=== PATIENT | male | born 1960 | race Two or more races ===

== ENCOUNTER 2020-10-06 08:42 | Outpatient (CLI) | payer OTHER | END 2020-10-06 08:50 | disposition home or self-care (01) | LOC: RX STUDY 08:42 | PROVIDERS: ATTEND Thoracic Surgery (Cardiothoracic Vascular Surgery) | DX: K44.9 Diaphragmatic hernia without obstruction or gangrene (principal) ==

== ENCOUNTER → 2020-12-20 07:18 | Outpatient (CLI) | payer OTHER | END | disposition home or self-care (01) | LOC: PPH VACUNA 07:18 | DX: Z23 Encounter for immunization (principal) ==

== ENCOUNTER 2020-12-30 09:25 | Outpatient (CLI) | payer OTHER | END 2020-12-30 09:33 | disposition home or self-care (01) | LOC: RX STUDY 09:25 | PROVIDERS: ATTEND Surgery | DX: K44.9 Diaphragmatic hernia without obstruction or gangrene (principal) ==

== ENCOUNTER 2021-01-10 08:00 | Outpatient (CLI) | payer OTHER | END 2021-01-10 08:30 | disposition home or self-care (01) | LOC: PPH VACUNA 08:00 | DX: Z23 Encounter for immunization (principal) ==

== ENCOUNTER 2021-10-07 02:00 | Outpatient (CLI) | payer OTHER | END 2021-10-07 02:30 | disposition home or self-care (01) | LOC: PPH VACUNA 02:00 | PROVIDERS: ATTEND Emergency Medicine Pediatric Emergency Medicine | DX: Z23 Encounter for immunization (principal) ==